=== PATIENT | female | born 1965 | race Caucasian/White ===

== ENCOUNTER → 2017-11-26 | Outpatient (CLI) | payer BC ==
[~2017-11-26] MED LIST: ACARBOSE 25 MG PO; Acarbose25 MG PO; Amaryl4 MG PO; DILTIAZEM 24HR180 MG PO; DILTIAZEM CD 180 MG; DIOVAN 160 MG; Diovan160 MG PO; Glimepiride4 MG PO; LOSA50 PO; METF500 PO; Mobic7.5 MG PO; VALSARTAN-HCTZ1 EAC1 PO; VENL37.5ER; VENL75ER PO; VENLAFAXINE H37.5 MG PO
== END ==
LOC: LAB 05:05 → LAB SHORT 05:05
DX: R30.0 Dysuria (principal)
CPT/HCPCS: 87077; 87086; 87186

== ENCOUNTER 2018-07-17 09:45 | Day surgery (SDC) | payer BC ==
[~2018-07-17] VITALS: Ht 157.5 cm; Wt 80.3 kg
[~2018-07-17 09:45] MED LIST changes: +(None)200 MCG PO; +ALBU90OI INH; +BIOTIN1 MG PO; +Estrace Vagin42.5 GM VAG; +Glucophage1000 MG PO; +LISI20 PO; +MULTI VITAMIN1 EACH PO; +VENL37.5 PO; +VENL37.5ER PO
[2018-07-17] MEDS ORDERED: GLIM2 PO (11:04)
--- NOTE | 2018-07-17 11:16 | NUR ---
07/17/18 1116 Jorge Bello LATE ENTRY 1040 ELEVATED BLOOD PRESSURES OF 209/93 AND 203/94 WITH A PULSE OF [address] FRANCE. DR FRANCE ORDERED 5MG LABETALOL IV X1 NOW. 5MG LABETALOL GIVEN. SEE VITAL SIGNS.
== END 2018-07-17 12:50 | disposition home or self-care (01) ==
LOC: ORSCSDS 09:45
PROVIDERS: Internal Medicine Gastroenterology
PROC: 0DBK8ZX Excision of Ascending Colon, Via Natural or Artificial Opening Endoscopic, Diagnostic (ICD-10-PCS; principal; 2018-07-17 11:15)
PROC: 0DBL8ZX Excision of Transverse Colon, Via Natural or Artificial Opening Endoscopic, Diagnostic (ICD-10-PCS; principal; 2018-07-17 11:15)
PROC: 0DBN8ZX Excision of Sigmoid Colon, Via Natural or Artificial Opening Endoscopic, Diagnostic (ICD-10-PCS; principal; 2018-07-17 11:15)
DX: Z12.11 Encounter for screening for malignant neoplasm of colon (principal); K63.5 Polyp of colon; D12.3 Benign neoplasm of transverse colon; K64.8 Other hemorrhoids; K57.30 Diverticulosis of large intestine without perforation or abscess without bleeding; Z86.010 Personal history of colon polyps; Z83.71 Family history of colonic polyps; I10 Essential (primary) hypertension; E11.9 Type 2 diabetes mellitus without complications; Z79.82 Long term (current) use of aspirin; Z79.84 Long term (current) use of oral hypoglycemic drugs; Z79.899 Other long term (current) drug therapy
CPT/HCPCS: 82947; 88305; J2704; J7120

== ENCOUNTER 2021-07-22 09:02 | Emergency (ER) | payer BC ==
[~2021-07-22] VITALS: Ht 157.5 cm; Wt 90.7 kg
[~2021-07-22 09:02] MED LIST changes: +GLIM2 PO
[2021-07-22 10:15] LABS: BASOPHILS ABSOLUTE AUTO 0.11 K/mm3 (0.00-0.23); BASOPHILS PERCENT AUTO 1 % (0-2); EOSINOPHILS ABSOLUTE AUTO 0.47 K/mm3 (0.00-0.68); EOSINOPHILS PERCENT AUTO 3 % (0-6); Hematocrit 38.6 % (33.0-51.0); Hemoglobin 13.5 g/dL (11.5-16.0); IMMATURE GRAN ABSOLUTE AUTO 0.22 K/mm3 (0.00-0.10); IMMATURE GRAN PERCENT AUTO 1 % (0-1); LYMPHOCYTES PERCENT AUTO 12 % (21-46); MONOCYTES ABSOLUTE AUTO 0.65 K/mm3 (0.16-1.47); MONOCYTES PERCENT AUTO 4 % (4-13); Mean Corpuscular HGB 27.8 pg (26.0-34.0); Mean Corpuscular Volume 80 fL (80-100); Mean Platelet Volume 10.6 fL (9.1-12.4); NEUTROPHILS ABSOLUTE AUTO 12.61 K/mm3 (1.96-9.15); NEUTROPHILS PERCENT AUTO 79 % (41-73); Platelet Count 341 K/mm3 (150-400); RDW Coefficient Variation 12.6 % (11.7-14.2); RDW Standard Deviation 35.8 fL (35.1-46.3); Red Blood Cell Count 4.85 M/mm3 (3.80-5.20); White Blood Cell Count 15.96 K/mm3 (4.00-11.30)
[2021-07-22 10:35] LABS: Alanine Aminotransfer (ALT/SGP 26 U/L (12-78); Albumin, Blood 3.6 g/dL (3.4-5.0); Albumin/Globulin Ratio 1.1 (0.8-1.8); Alk Phos 64 U/L (50-136); Anion Gap 8 mmol/L (6-16); Aspartate Aminotrans (AST/SGOT 13 U/L (12-37); Bilirubin, Total 0.3 mg/dL (0.1-1.0); Blood Urea Nitrogen 17 mg/dL (8-24); Bun/Creatinine Ratio 25.4 (12.0-20.0); CO2, Blood 27 mmol/L (21-32); Chloride, Blood 97 mmol/L (98-108); Creatinine, Blood 0.67 mg/dL (0.40-1.00); Globulin, Blood 3.4 g/dL (2.2-4.0); Glomerular Filtration Rate >60 (60-); Glucose, Blood 317 mg/dL (70-99); Potassium, Blood 3.7 mmol/L (3.5-5.5); Sodium, Blood 132 mmol/L (136-145)
[2021-07-22 11:03] LABS: Source, Urine Clean Catch
[2021-07-22 11:09] LABS: Appearance, Urine Clear (Clear); Bilirubin, Urine Neg (Neg); Blood, Urine Neg (Neg); Color, Urine Yellow (P-Yellow); Glucose Qualitative, Urine 4+ (Neg); Ketones, Urine 3+ (Neg); Leukocyte Esterase, Urine Neg (Neg); Nitrite, Urine Neg (Neg); Protein, Urine Neg (Neg); Specific Gravity, Urine 1.025 (1.003-1.022); Urobilinogen, Urine NORM (Normal)
== END 2021-07-22 11:22 | disposition left against medical advice (07) ==
LOC: ER 09:02
PROVIDERS: Physician Assistant
DX: R10.9 Unspecified abdominal pain (principal); Z53.21 Procedure and treatment not carried out due to patient leaving prior to being seen by health care provider
CPT/HCPCS: 36415; 80053; 81003; 83605; 85025; 99281

== ENCOUNTER → 2022-03-16 | Outpatient (CLI) | payer BC | LOC: LAB 08:00 → LAB SHORT 08:00 | DX: R31.9 Hematuria, unspecified (principal); R35.0 Frequency of micturition | CPT/HCPCS: 87077; 87086; 87186 ==

== ENCOUNTER → 2023-04-16 | Outpatient (CLI) | payer BC | END | disposition home or self-care (01) | LOC: LAB 09:53 → LAB SHORT 09:53 | DX: R10.9 Unspecified abdominal pain (principal) | CPT/HCPCS: 87086 ==

== ENCOUNTER → 2023-04-22 | Outpatient (CLI) | payer BC ==
[2023-04-22 10:55] LABS: BASOPHILS ABSOLUTE AUTO 0.09 K/mm3 (0.00-0.23); BASOPHILS PERCENT AUTO 1 % (0-2); EOSINOPHILS ABSOLUTE AUTO 0.95 K/mm3 (0.00-0.68); EOSINOPHILS PERCENT AUTO 9 % (0-6); Hemoglobin 14.4 g/dL (11.5-16.0); IMMATURE GRAN ABSOLUTE AUTO 0.09 K/mm3 (0.00-0.10); IMMATURE GRAN PERCENT AUTO 1 % (0-1); LYMPHOCYTES PERCENT AUTO 28 % (21-46); MONOCYTES ABSOLUTE AUTO 0.65 K/mm3 (0.16-1.47); MONOCYTES PERCENT AUTO 6 % (4-13); Mean Corpuscular HGB 27.1 pg (26.0-34.0); Mean Corpuscular HGB Conc 33.5 g/dL (31.5-36.5); Mean Corpuscular Volume 81 fL (80-100); Mean Platelet Volume 10.1 fL (9.1-12.4); NEUTROPHILS ABSOLUTE AUTO 6.27 K/mm3 (1.96-9.15); NEUTROPHILS PERCENT AUTO 56 % (41-73); Platelet Count 382 K/mm3 (150-400); RDW Coefficient Variation 13.2 % (11.7-14.2); RDW Standard Deviation 38.2 fL (35.1-46.3); Red Blood Cell Count 5.31 M/mm3 (3.80-5.20); White Blood Cell Count 11.15 K/mm3 (4.00-11.30)
[2023-04-22 11:07] LABS: Albumin, Blood 3.9 g/dL (3.4-5.0); Albumin/Globulin Ratio 1.1 (0.8-1.8); Bilirubin, Total 0.2 mg/dL (0.1-1.0); Calcium, Blood 9.4 mg/dL (8.5-10.1); Globulin, Blood 3.4 g/dL (2.2-4.0); Potassium, Blood 4.4 mmol/L (3.5-5.5); Total Protein, Blood 7.3 g/dL (6.4-8.2)
== END | disposition home or self-care (01) ==
LOC: LAB 10:51 → LAB SHORT 10:51
PROVIDERS: Physician Assistant Surgical
DX: R42 Dizziness and giddiness (principal)
CPT/HCPCS: 80053; 85025

== ENCOUNTER 2024-02-20 05:47 | Day surgery (SDC) | payer BC ==
[~2024-02-20] VITALS: Ht 157.5 cm; Wt 79.0 kg
[2024-02-20] VITALS (18 sets, daily range): BP systolic 136–192; BP diastolic 60–84
[2024-02-20] MEDS ORDERED: AMLO10 PO (06:29)
[2024-02-20] MEDS ORDERED: Aspir 8181 MG PO (06:29)
[2024-02-20] MEDS ORDERED: METF500 PO (06:30)
[2024-02-20] MEDS ORDERED: KLOR-CON 1010 ME9 PO (06:30)
[2024-02-20] MEDS ORDERED: VALS80 PO (06:31)
[2024-02-20] MEDS ORDERED: HYDCHL25 PO (06:32)
[2024-02-20] MEDS ORDERED: Benzocaine Oral Spray 0.5ML UD ONE (06:59)
[2024-02-20] MEDS ORDERED: NS 1,000 ML IV ONE (07:01)
--- NOTE | 2024-02-20 07:40 | NUR ---
PT AWAKE AND CONVERSING APPROPRIATELY POST PROCEDURE, DENIES PAIN, VSS ON RA.
--- NOTE | 2024-02-20 08:35 | NUR ---
PT DRESSED SELF WITHOUT ISSUE, IV REMOVED-CANNULA INTACT. PT RECEIVED DISCHARGE INSTRUCTIONS, MED LIST AND AFTER CARE INSTRUCTIONS; VERBALIZED GOOD UNDERSTANDING. PT LEFT FACILITY VIA W/C, CONDITION STABLE.
[2024-02-20] MEDS ORDERED: Propofol 10mg/ml 20 ml Vial (Procedural) IV ONE (14:30)
== END 2024-02-20 09:34 | disposition home or self-care (01) ==
LOC: ORSCMMR 05:47 → MHTC 05:47 → ORSCMMR 05:48 → MHTC 05:48 → ORSCMMR 07:00 → ORD 07:00 → ORSCMMR 09:34 → MHTC 09:34
DX: I63.9 Cerebral infarction, unspecified (principal)
CPT/HCPCS: 93312; 93325; A9270; J2704; J7030